=== PATIENT | male | born 1950 | race Caucasian/White ===

== ENCOUNTER → 2017-09-11 | Day surgery (SDC) | payer BC, MEDICARE ==
--- NOTE | 2017-09-08 13:43 | Diagnostic Imaging Report ---
PROCEDURE: X-RAY CHEST, TWO VIEWS COMPARISON: None. INDICATIONS: PRE OPERATIVE CHEST X-RAY FOR FOOT SURGERY FINDINGS: LUNGS: No consolidations or edema. PLEURA: No effusions or pneumothorax. HEART \T\ MEDIASTINUM: The heart is within normal size-limits. BONES \T\ SOFT TISSUES: No acute findings. CONCLUSION: No acute thoracic abnormality. Dictated by: Jhon Blackwell M.D. on 09/08/2017 at 13:48 Electronically approved by: Jhon Blackwell M.D. on 09/08/2017 at 13:48
[2017-09-08 13:59] LABS: BASOPHILS # (AUTO) 0.1 (0.0-0.1); BASOPHILS % 1.2 % (0.0-1.0); EOSINOPHILS # (AUTO) 0.5 (0.0-0.4); EOSINOPHILS % 5.5 % (0.0-6.0); LYMPHOCYTES % 21.1 % (18.0-39.1); MEAN CORPUSCULAR HEMOGLOBIN 30.2 pg (28-32); MEAN CORPUSCULAR VOLUME 86.2 fL (81-99); MONOCYTES # (AUTO) 0.7 (0.2-0.8); MONOCYTES % 7.6 % (4.4-11.3); NEUTROPHILS % 64.4 % (38.7-80.0); PLATELET COUNT 223 x10e3/uL (140-360); RED BLOOD COUNT 4.64 x10e6/uL (4.3-5.7); RED CELL DISTRIBUTION WIDTH 12.7 % (11.7-14.4)
[2017-09-08 14:30] LABS: ANION GAP 12.3 mmol/L (8-16); CALCIUM 9.6 mg/dL (8.4-10.2); CREATININE, SERUM 1.31 mg/dL (0.72-1.25); POTASSIUM 4.3 mmol/L (3.5-5.1)
[~2017-09-11] MED LIST: ASPIR 8181 MG PO; ATORVASTATIN CA20 MG PO; BACITRACIN 50,000 UNIT VIAL ONE; BUMETANIDE1 MG PO; BUPIVACAINE HCL 0.5% INJ 30 ML VIAL INJ ONE; CARVEDILOL12.5 MG PO; CEFAZOLIN SOD 2 GM/D5W 50ML 50 ML IV ONE; CO Q10100 MG PO; FENTANYL CITRATE/PF 100MCG/2 ML INJ ONE; FLOMAX0.4 MG PO; FOLIC ACID1 MG PO; FUROSEMIDE40 MG PO; GABAPENTIN400 MG PO; GLYCOPYRROLATE INJ 1MG/ 5 ML SYR ONE; HUMALOG100 UNIT/1 SC; INSULIN REGULAR, HUMAN 100 UNIT/1 ML 3ML VIAL ONE; KRILL OIL 1,001 EACH PO; LANTUS 3ML100 UNITS/ SC; LIDOCAINE HCL 2% LOCAL INJ 5 ML SDV VIAL INJ ONE; LOSARTAN POTAS100 MG PO; METFORMIN HCL500 M2 PO; MIDAZOLAM HCL 2 MG/2 ML VIAL ONE; MUPIROCIN 2% OINT 22 GM TUBE ONE; ONDANSETRON HCL INJ 2 MG/ML VIAL ONE; PROPOFOL IV EMULSION 10 MG/ML 20 ML VIAL ONE; SEVOFLURANE INHAL SOLN 250 ML PEN BTL ONE; SM NATURAL BAL100 MG PO; VIT D3 PO
--- NOTE | 2017-09-13 22:11 | Operative Report ---
DATE OF PROCEDURE: September 11, 2017 ROOM NUMBER: [facility] PREOPERATIVE DIAGNOSES 1. Plantar flexion and dislocation of the 3rd metatarsophalangeal joint of the right foot. 2. 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 POSTOPERATIVE DIAGNOSES 1. Plantar flexion and dislocation of the 3rd metatarsophalangeal joint of the right foot. 2. 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 TITLES OF OPERATION 1. Excision of the 3rd metatarsal phalangeal joint on the right foot metatarsal head and base of proximal phalanx were both removed. 2. Also a debridement of the ulceration on the plantar aspect of the right foot. PROCEDURE IN DETAIL: Patient was taken to the operating room in a mildly sedated state and placed upon the operating table in supine position. Following induction of general anesthetic, the right lower extremity was elevated at 60 degrees to exsanguinate before inflating the pneumatic thigh tourniquet at 350 mmHg with good hemostasis. The right lower extremity was placed upon the operating table prior to performing the following procedure. Procedure #1 is the resection of the 3rd metatarsal of the right foot. A linear longitudinal incision made overlying the dorsomedial aspect of the 3rd met on the right foot. The incision was deepened via sharp and blunt dissection up to the level of the dorsal capsular structure. Care was taken to identify and retract all vital structures encountered. Head of the 3rd metatarsal was noted to be significantly hypertrophic and plantarflexed. The 3rd digit was actually subluxed and dislocated completely on top of the joint. The base of the 3rd proximal phalanx was removed as was the head of the 3rd metatarsal. The area was irrigated with copious amounts of sterile saline solution. Deep wound cultures were taken. It was noted that the joint did not penetrate through the plantar aspect of the foot. However, there was a large ulceration all the way down to capsule of the plantar aspect of the 3rd metatarsal of the left foot. After copious irrigation and culture and deep closure with 3-0 Vicryl, subcutaneous closure with 4-0 Vicryl, and skin closure with 4-0 nylon. Plantar aspect of the foot was then evaluated and debrided full thickness through skin and subcutaneous tissue with an excisional debridement including all surrounding skin, subcutaneous tissue, muscle granular tissue, and the capsule was once again not invaded at that point. The appropriate mildly compressive dressings were applied including an iodoform gauze. Release of pneumatic thigh tourniquet showed a normal hyperemic flush to all digits of the right foot. The patient left the operating room with vital signs stable in apparent satisfactory condition, having tolerated both anesthetic and procedure very well. The 3rd, 4th, and 5th metatarsal were all checked, 4th and 5th metatarsals by fluoroscopic eval and direct visualization were noted to be free of any significant deformity at this point. Therefore, no bone other than the 3rd metatarsal and base of the 3rd phalanx was removed. Job#: [id number] CQ
== END | disposition home or self-care (01) ==
LOC: OR 08:50
PROVIDERS: ATTEND Podiatrist Foot Surgery
DX: L97.515 Non-pressure chronic ulcer of other part of right foot with muscle involvement without evidence of necrosis (principal); M21.271 Flexion deformity, right ankle and toes; S93.124A Dislocation of metatarsophalangeal joint of right lesser toe(s), initial encounter; R06.83 Snoring; I10 Essential (primary) hypertension; E11.9 Type 2 diabetes mellitus without complications; H91.90 Unspecified hearing loss, unspecified ear; N20.0 Calculus of kidney; X58.XXXA Exposure to other specified factors, initial encounter; Z01.810 Encounter for preprocedural cardiovascular examination; Z01.812 Encounter for preprocedural laboratory examination; Z01.818 Encounter for other preprocedural examination; Z79.82 Long term (current) use of aspirin; Z79.4 Long term (current) use of insulin; Z89.421 Acquired absence of other right toe(s); Z87.891 Personal history of nicotine dependence
CPT/HCPCS: 11043; 28112; 36415 ×2; 71046; 76000; 80048; 82948; 85025; 87071; 87075; 87205; 88305; 88311; 93005; J2001; J2250; J2405; J3490; Q4100

== ENCOUNTER 2018-06-15 16:26 | Emergency (ER) | payer BC, MEDICARE ==
[~2018-06-15] VITALS: Ht 188 cm; Wt 129.7 kg
[~2018-06-15 16:26] MED LIST changes: -BACITRACIN 50,000 UNIT VIAL ONE; -BUPIVACAINE HCL 0.5% INJ 30 ML VIAL INJ ONE; -CEFAZOLIN SOD 2 GM/D5W 50ML 50 ML IV ONE; -FENTANYL CITRATE/PF 100MCG/2 ML INJ ONE; -GLYCOPYRROLATE INJ 1MG/ 5 ML SYR ONE; -INSULIN REGULAR, HUMAN 100 UNIT/1 ML 3ML VIAL ONE; -LIDOCAINE HCL 2% LOCAL INJ 5 ML SDV VIAL INJ ONE; -MIDAZOLAM HCL 2 MG/2 ML VIAL ONE; -MUPIROCIN 2% OINT 22 GM TUBE ONE; -ONDANSETRON HCL INJ 2 MG/ML VIAL ONE; -PROPOFOL IV EMULSION 10 MG/ML 20 ML VIAL ONE; -SEVOFLURANE INHAL SOLN 250 ML PEN BTL ONE
[2018-06-15] MEDS ORDERED: BACITRACIN ZINC 0.9GM TP ONE (17:15)
--- NOTE | 2018-06-15 18:26 | Diagnostic Imaging Report ---
Radiographs of the right foot - 3 views HISTORY: Pain COMPARISON: None available. FINDINGS: Bones: No acute displaced fracture. Prior resection of the first toe at the level of the proximal right first metatarsal. Chronic appearing deformity of the distal right second metatarsal. Chronic appearing deformity with prior resection of the distal third metatarsal. Osseous alignment is within normal limits. Joints: The joint spaces are well-maintained. Soft tissues: Soft tissue swelling about the fourth and fifth toes. IMPRESSION: Soft tissue swelling about the fourth and fifth toes. Prior resection of the first toe at the level of the proximal right first metatarsal. Chronic appearing deformity of the distal right second metatarsal. Chronic appearing deformity with prior resection of the distal third metatarsal. Signed by: Dr. Wolfgang Marmolejo M.D. on 06/15/2018 6:22 PM
--- NOTE | 2018-06-15 18:50 | NUR ---
[employer] TO TRIAGE, CLEANSED WOUND WITH SNS AND IDODINE, APPLIED BACITRACIN AND GAUZE TO 4TH AND FIFTH TOE TO RIGHT FOOT, PT TOLERATED WELL
== END 2018-06-15 20:00 | disposition home or self-care (01) ==
LOC: ER 16:26
DX: S91.104A Unspecified open wound of right lesser toe(s) without damage to nail, initial encounter (principal); W22.8XXA Striking against or struck by other objects, initial encounter; Y93.9 Activity, unspecified; Y92.003 Bedroom of unspecified non-institutional (private) residence as the place of occurrence of the external cause; Z89.411 Acquired absence of right great toe; I10 Essential (primary) hypertension; E11.40 Type 2 diabetes mellitus with diabetic neuropathy, unspecified; Z79.4 Long term (current) use of insulin; Z79.82 Long term (current) use of aspirin; E78.5 Hyperlipidemia, unspecified; E66.9 Obesity, unspecified; Z68.36 Body mass index [BMI] 36.0-36.9, adult; N40.0 Benign prostatic hyperplasia without lower urinary tract symptoms; M10.9 Gout, unspecified